=== PATIENT | female | born 1990 | race Two or more races ===

== ENCOUNTER 2022-12-21 06:31 | Day surgery (SDC) | payer MEDICAID ==
[~2022-12-21] VITALS: Ht 149.9 cm; Wt 40.9 kg
[~2022-12-21 06:31] MED LIST: PREN1TAB23 PO
[2022-12-21 06:40] VITALS: BP 128/86
[2022-12-21] MEDS ORDERED: OMEP20CA16 PO (06:50)
[2022-12-21] MEDS ORDERED: DICY20TA2 PO (06:51)
[2022-12-21] MEDS ORDERED: SERT-432 PO (06:52)
[2022-12-21] MEDS ORDERED: SUCR1TAB PO (06:53)
[2022-12-21] MEDS ORDERED: fentaNYL/PF 50MCG/1 ML 2ML syringe ONE (07:23)
[2022-12-21] MEDS ORDERED: MIDAZolam 1 MG/ML 5ML VIAL ONE (07:23)
[2022-12-21] MEDS ORDERED: LIDOcaine Viscous 15ml cup ONE (07:23)
[2022-12-21 08:15] VITALS: BP 91/55
[2022-12-21 08:25] VITALS: BP 107/70
[2022-12-21 08:35] VITALS: BP 97/71
[2022-12-21 08:45] VITALS: BP 92/64
== END 2022-12-21 08:50 | disposition home or self-care (01) ==
LOC: GI LAB 06:31
PROVIDERS: ATTEND Internal Medicine Gastroenterology
DX: K92.1 Melena (principal); K62.89 Other specified diseases of anus and rectum; K29.50 Unspecified chronic gastritis without bleeding; K29.80 Duodenitis without bleeding
CPT/HCPCS: 43239; 45380; 99152; 99153; J2250; J3010; J7030; Z7512; A4620